=== PATIENT | female | born 1990 | race Two or more races ===

== ENCOUNTER 2021-08-30 18:47 | Observation (INO) | payer MEDICAID, OTHER ==
[~2021-08-30] VITALS: Ht 167.6 cm; Wt 81.6 kg
[2021-08-30 19:00] VITALS: BP 128/79
== END 2021-08-30 23:25 | disposition home or self-care (01) ==
LOC: EDBD 18:47 → ER 18:47 → LDRP 19:02
PROVIDERS: ADMIT Obstetrics & Gynecology; ATTEND Obstetrics & Gynecology
DX: O99.891 Other specified diseases and conditions complicating pregnancy (principal); M54.50 Low back pain, unspecified; R10.30 Lower abdominal pain, unspecified; Z3A.22 22 weeks gestation of pregnancy; V49.40XA Driver injured in collision with unspecified motor vehicles in traffic accident, initial encounter; Y93.89 Activity, other specified; Y92.410 Unspecified street and highway as the place of occurrence of the external cause; Y99.8 Other external cause status
CPT/HCPCS: 59025; 76815; 81002; 99284; G0378

== ENCOUNTER 2021-09-04 12:33 | Observation (INO) | payer MEDICAID | END 2021-09-04 13:50 | disposition home or self-care (01) | LOC: LDRP 12:33 | PROVIDERS: ADMIT Obstetrics & Gynecology; ATTEND Obstetrics & Gynecology | DX: O99.891 Other specified diseases and conditions complicating pregnancy (principal); M54.2 Cervicalgia; Z3A.23 23 weeks gestation of pregnancy; Z87.891 Personal history of nicotine dependence; V49.9XXA Car occupant (driver) (passenger) injured in unspecified traffic accident, initial encounter; Y93.89 Activity, other specified; Y92.89 Other specified places as the place of occurrence of the external cause | CPT/HCPCS: 59025; 81002; G0378 ==